=== PATIENT | female | born 1960 | race Two or more races ===

== ENCOUNTER 2018-03-02 13:43 | Emergency (ER) | payer OTHER ==
[~2018-03-02] VITALS: Ht 165.1 cm; Wt 111.1 kg
[~2018-03-02 13:43] MED LIST: ADULT ASPIRIN81 MG; AMIODARONE HCL200 MG; ATENOLOL25 MG; GLIPIZIDE10 MG; GLUMETZA1000 MG; HYZAAR 100-251 UDTAB; NEURONTIN300 MG; PLAVIX75 MG; SIMVASTATIN40 MG; SYNTHROID150 MCG
[2018-03-02] MEDS ORDERED: COUMADIN2.5 MG (14:21)
== END 2018-03-02 22:45 | disposition home or self-care (01) ==
LOC: ER 13:43
DX: K62.5 Hemorrhage of anus and rectum (principal)

== ENCOUNTER 2018-03-26 08:02 | Outpatient (CLI) | payer OTHER ==
[~2018-03-26 08:02] MED LIST changes: +COUMADIN2.5 MG
== END 2018-03-26 08:09 | disposition home or self-care (01) ==
LOC: TOM 08:02
DX: R93.3 Abnormal findings on diagnostic imaging of other parts of digestive tract (principal); Z79.01 Long term (current) use of anticoagulants

== ENCOUNTER 2018-04-20 07:22 | Outpatient (CLI) | payer OTHER | END 2018-04-20 07:23 | disposition home or self-care (01) | LOC: SONOGRAMA 07:22 | DX: R93.2 Abnormal findings on diagnostic imaging of liver and biliary tract (principal) ==

== ENCOUNTER 2018-07-26 07:09 | Outpatient (CLI) | payer OTHER | END 2018-07-26 07:11 | disposition home or self-care (01) | LOC: SONOGRAMA 07:09 | DX: E04.1 Nontoxic single thyroid nodule (principal) ==

== ENCOUNTER 2020-01-09 07:58 | Outpatient (CLI) | payer OTHER | END 2020-01-09 08:02 | disposition home or self-care (01) | LOC: SONOGRAMA 07:58 | PROVIDERS: ATTEND Pathology Anatomic Pathology & Clinical Pathology | DX: E04.1 Nontoxic single thyroid nodule (principal) ==

== ENCOUNTER 2020-02-28 05:55 | Emergency (ER) | payer OTHER ==
[~2020-02-28] VITALS: Ht 294.6 cm; Wt 106.6 kg
[2020-02-28] MEDS ORDERED: JANUMET XR 1001 EACH PO (06:08)
[2020-02-28] MEDS ORDERED: KETO10TA2 PO (10:18)
[2020-02-28] MEDS ORDERED: NORFLEX100MG PO (10:18)
== END 2020-02-28 10:52 | disposition home or self-care (01) ==
LOC: ER 05:55
DX: S00.83XA Contusion of other part of head, initial encounter (principal); W18.39XA Other fall on same level, initial encounter; Y93.89 Activity, other specified; Y92.098 Other place in other non-institutional residence as the place of occurrence of the external cause; Y99.8 Other external cause status

== ENCOUNTER 2020-10-12 12:28 | Emergency (ER) | payer OTHER ==
[~2020-10-12] VITALS: Ht 165.1 cm; Wt 108.9 kg
[~2020-10-12 12:28] MED LIST changes: +JANUMET XR 1001 EACH PO; +KETO10TA2 PO; +NORFLEX100MG PO
== END 2020-10-12 15:03 | disposition home or self-care (01) ==
LOC: ER 12:28
DX: M79.672 Pain in left foot (principal); M79.671 Pain in right foot; S91.3 Open wound of foot; S91.341S Puncture wound with foreign body, right foot, sequela; W25.XXXS Contact with sharp glass, sequela

== ENCOUNTER 2022-03-04 10:49 | Emergency (ER) | payer OTHER ==
[~2022-03-04] VITALS: Ht 165.1 cm; Wt 115.7 kg
[2022-03-04] MEDS ORDERED: SYNTHROID100 MCG PO (11:04)
== END 2022-03-04 16:31 | disposition home or self-care (01) ==
LOC: ER 10:49
DX: S34.8XXA Injury of other nerves at abdomen, lower back and pelvis level, initial encounter (principal); Z88.6 Allergy status to analgesic agent; E11.65 Type 2 diabetes mellitus with hyperglycemia; Z79.84 Long term (current) use of oral hypoglycemic drugs; I10 Essential (primary) hypertension

== ENCOUNTER → 2022-08-09 | Emergency (ER) | payer OTHER ==
[~2022-08-09] VITALS: Ht 165.1 cm; Wt 114.8 kg
[~2022-08-09] MED LIST changes: +SYNTHROID100 MCG PO
== END | disposition home or self-care (01) ==
LOC: ER 08:00
DX: H66.91 Otitis media, unspecified, right ear (principal); Z88.6 Allergy status to analgesic agent

== ENCOUNTER 2022-09-21 11:29 | Emergency (ER) | payer OTHER ==
[~2022-09-21] VITALS: Ht 162.6 cm; Wt 115.7 kg
== END 2022-09-21 16:03 | disposition home or self-care (01) ==
LOC: ER 11:29
DX: M79.671 Pain in right foot (principal); E11.65 Type 2 diabetes mellitus with hyperglycemia; Z79.84 Long term (current) use of oral hypoglycemic drugs; Z88.0 Allergy status to penicillin; Z86.73 Personal history of transient ischemic attack (TIA), and cerebral infarction without residual deficits; I10 Essential (primary) hypertension; E03.9 Hypothyroidism, unspecified; M77.31 Calcaneal spur, right foot

== ENCOUNTER 2023-02-02 22:34 | Inpatient (IN) | payer OTHER ==
[~2023-02-02] VITALS: Ht 165.1 cm; Wt 111.6 kg
== END 2023-02-06 21:10 | disposition home or self-care (01) | DRG 311 ==
LOC: ER 22:34 → SEC-K 02-03 14:14 → MEDI 02-03 14:14
PROVIDERS: ADMIT Internal Medicine; ATTEND Internal Medicine
PROC: B246ZZZ Ultrasonography of Right and Left Heart (ICD-10-PCS; 2023-02-03)
PROC: 4A12X4Z Monitoring of Cardiac Electrical Activity, External Approach (ICD-10-PCS; 2023-02-03)
PROC: 4A02XM4 Measurement of Cardiac Total Activity, External Approach (ICD-10-PCS; principal; 2023-02-06)
PROC: 3E073KZ Introduction of Other Diagnostic Substance into Coronary Artery, Percutaneous Approach (ICD-10-PCS; 2023-02-06)
DX: I24.9 Acute ischemic heart disease, unspecified (principal); Z68.41 Body mass index [BMI] 40.0-44.9, adult; I48.0 Paroxysmal atrial fibrillation; I11.9 Hypertensive heart disease without heart failure; E66.01 Morbid (severe) obesity due to excess calories; G47.33 Obstructive sleep apnea (adult) (pediatric); Z79.01 Long term (current) use of anticoagulants

== ENCOUNTER 2023-04-12 10:03 | Outpatient (CLI) | payer OTHER | END 2023-04-12 10:11 | disposition home or self-care (01) | LOC: SONOGRAMA 10:03 | PROVIDERS: ATTEND Internal Medicine | DX: E04.1 Nontoxic single thyroid nodule (principal) ==

== ENCOUNTER 2023-04-19 07:04 | Outpatient (CLI) | payer OTHER | END 2023-04-19 07:11 | disposition home or self-care (01) | LOC: TOM 07:04 | PROVIDERS: ATTEND Internal Medicine Gastroenterology | DX: K56.609 Unspecified intestinal obstruction, unspecified as to partial versus complete obstruction (principal) ==

== ENCOUNTER 2024-12-28 09:32 | Emergency (ER) | payer OTHER ==
[~2024-12-28] VITALS: Ht 165.1 cm; Wt 106.6 kg
[2024-12-28] MEDS ORDERED: ONDANSETRON HCL 2 MG/ML VIAL IV ONE (11:00)
[2024-12-28] MEDS ORDERED: BUTALB/ACETAMINOPHEN/CAFFEINE 1 TAB TABLET PO ONE ×2 (11:00→11:32)
[2024-12-28] MEDS ORDERED: ONDANSETRON HCL 2 MG/ML VIAL ONE (11:32)
[2024-12-28 11:58] LABS: BASO % 0.5 % (0.1-1.2); EOS # 0.07 (0.04-0.54); EOS % 1.1 % (0.7-7.0); HEMATOCRIT 37.7 % (34.1-44.9); HEMOGLOBIN 12.3 g/dL (11.2-15.7); LYMPH # 2.46 (1.18-3.74); LYMPH % 40.3 % (19.3-53.1); MEAN CORPUSCULAR HEMOGLOBIN 26.5 pg (25.6-32.2); MONO % 6.6 % (4.7-12.5); NEUT % 50.8 % (34.0-71.1); PLATELET COUNT 248 K/uL (163-369); RED BLOOD COUNT 4.64 M/uL (3.93-5.22); RED CELL DISTRIBUTION WIDTH 14.6 % (11.6-14.4)
[2024-12-28 12:25] LABS: PH,URINE 5.5 (5.0-8.0); URINE APPEARANCE Clear; URINE BILIRRUBIN Negative (NEGATIVE); URINE BLOOD Negative; URINE COLOR Yellow; URINE KETONE Negative (NEGATIVE); URINE LEUKOCYTE Negative; URINE NITRATE Negative; URINE PROTEIN Negative (NEGATIVE); URINE UROBILINOGEN 0.2 E.U./dl
[2024-12-28 12:29] LABS: INR 2.92
[2024-12-28 12:30] LABS: URINE BACTERIA 2938.7 uL (0.0-1933); URINE EPITHELIAL CELLS 9.3 uL (0.0-38.8); URINE WBC 7.7 uL (0.0-23.2)
[2024-12-28 12:30] LABS: PARTIAL THROMBOPLASTIN TIME 46.1 SECONDS (22.0-34.0); PROTHROMBIN TIME 29.4 SECONDS (9.0-11.5)
[2024-12-28 12:33] LABS: URINE GLUCOSE >=1000 MG/DL (NEGATIVE); URINE RBC 1.9 uL (0.0-20.8)
[2024-12-28 12:40] LABS: ALBUMIN 3.6 gm/dL (3.4-5.0); BILIRUBIN TOTAL 0.45 mg/dL (0.3-1.2); CALCIUM 8.9 mg/dL (8.5-10.1); CREATININE SERUM 0.72 mg/dL (0.55-1.02); GFR 81.55; GLOBULINA 3.8 G/DL (2.4-3.5); POTASSIUM 4.89 mEq/L (3.5-5.1); TOTAL PROTEIN 7.4 gm/dL (6.4-8.2)
== END 2024-12-28 16:26 | disposition home or self-care (01) ==
LOC: ER 09:35
PROVIDERS: Emergency Medicine
DX: R51.9 Headache, unspecified (principal); E11.9 Type 2 diabetes mellitus without complications; Z79.84 Long term (current) use of oral hypoglycemic drugs; Z88.6 Allergy status to analgesic agent
CPT/HCPCS: 36415; 70450; 93005; 96365; 99284; J2405

== ENCOUNTER 2025-01-06 13:54 | Outpatient (CLI) | payer OTHER | END 2025-01-06 13:56 | disposition home or self-care (01) | LOC: RAD 13:54 | DX: M25.561 Pain in right knee (principal); M25.562 Pain in left knee ==

== ENCOUNTER 2025-01-09 13:31 | Outpatient (CLI) | payer OTHER | END 2025-01-09 13:37 | disposition home or self-care (01) | LOC: MRI 13:31 | PROVIDERS: ATTEND Internal Medicine | DX: M25.562 Pain in left knee (principal); M19.90 Unspecified osteoarthritis, unspecified site | CPT/HCPCS: 73721 ==

== ENCOUNTER 2025-02-17 05:45 | Emergency (ER) | payer OTHER ==
[~2025-02-17] VITALS: Ht 152.4 cm; Wt 106.6 kg
[2025-02-17 09:43] LABS: BASO % 0.8 % (0.1-1.2); EOS # 0.05 (0.04-0.54); EOS % 0.8 % (0.7-7.0); HEMATOCRIT 40.4 % (34.1-44.9); HEMOGLOBIN 12.4 g/dL (11.2-15.7); LYMPH # 2.08 (1.18-3.74); LYMPH % 33.4 % (19.3-53.1); MEAN CORPUSCULAR HEMOGLOBIN 25.4 pg (25.6-32.2); MONO # 0.53 (0.24-0.82); MONO % 8.5 % (4.7-12.5); NEUT # 3.45 (1.56-6.13); NEUT % 55.4 % (34.0-71.1); PLATELET COUNT 237 K/uL (163-369); RED BLOOD COUNT 4.88 M/uL (3.93-5.22); RED CELL DISTRIBUTION WIDTH 14.7 % (11.6-14.4)
[2025-02-17 09:51] LABS: ERYTHROCYTE SEDIMENTATION RATE 40 mm/hr (0-30)
[2025-02-17 10:10] LABS: ALBUMIN 3.5 gm/dL (3.4-5.0); BILIRUBIN TOTAL 0.47 mg/dL (0.3-1.2); CALCIUM 9.1 mg/dL (8.5-10.1); CREATININE SERUM 0.83 mg/dL (0.55-1.02); GFR 69.21; GLOBULINA 4.4 G/DL (2.4-3.5); POTASSIUM 4.4 mEq/L (3.5-5.1); TOTAL PROTEIN 7.9 gm/dL (6.4-8.2)
[2025-02-17 10:19] LABS: FIBRINOGEN 373 mg/dL (187.0-446.0)
[2025-02-17 10:24] LABS: D DIMER < 0.19 MG/L; PARTIAL THROMBOPLASTIN TIME 55.5 SECONDS (22.0-34.0)
[2025-02-17 10:32] LABS: INR 4.52; PROTHROMBIN TIME 44.1 SECONDS (9.0-11.5)
[2025-02-17] MEDS ORDERED: INSULIN REGULAR, HUMAN 1,000 UNIT/10 ML UNITS IV ONE (10:45)
[2025-02-17] MEDS ORDERED: 0.9 % SODIUM CHLORIDE 1,000 ML IV ONE (10:45)
== END 2025-02-17 15:41 | disposition home or self-care (01) ==
LOC: ER 05:55
PROVIDERS: General Practice
DX: M25.571 Pain in right ankle and joints of right foot (principal); I10 Essential (primary) hypertension; E03.8 Other specified hypothyroidism; E11.9 Type 2 diabetes mellitus without complications; Z79.84 Long term (current) use of oral hypoglycemic drugs; Z88.6 Allergy status to analgesic agent
CPT/HCPCS: 36415; 73610; 93970; 96365; 99284; J1815; J7030